=== PATIENT | male | born 1955 | race Caucasian/White ===

== ENCOUNTER 2016-10-12 17:35 | Emergency (ER) | payer MEDICARE ==
[2016-10-12 17:36] VITALS: BP 102/71; PULSE 72; RESP 20; TEMP 97.9; O2SAT 98
--- NOTE | 2016-10-12 18:05 | PD ---
Physical Exam Date Seen by Provider: Oct 12, 2016 Time Seen by Provider: 18:03 Narrative 61 yo male that presents to the ED for evaluation of fall this morning. Fell down about 15 stairs. Pain to back and right leg. No head injury. No LOC. Ambulating with cane (not his). No neck pain. No arm pain. Pain is 8/10. Vitals are stable. Awaiting bed placement. Data Data Last Documented VS Vital Signs Date Time Temp Pulse Resp B/P Pulse Ox O2 Delivery O2 Flow Rate FiO2 10/12/16 17:36 97.9 72 20 102/71 98 Room Air [facility] Medical Record Reviewed: Yes Supervised Visit with SURESH: No Kyle Clark Oct 12, 2016 18:05
[2016-10-12] MEDS ORDERED: ORPHENADRINE INJ 60 MG/2 ML AMP IM ONE (19:15)
[2016-10-12] MEDS ORDERED: KETOROLAC TROMETHAMINE 60 MG/2 ML (IM) VIAL IM ONE (19:15)
--- NOTE | 2016-10-12 19:27 | PD ---
HPI Chief Complaint: Back/ Neck Pain or Injury Time Seen by Provider: 19:24 Travel History International Travel<30 days: No Contact w/Intl Traveler<30days: No Traveled to known affect area: No History of Present Illness HPI 61-year-old white male with a history of MS presents emergency department for evaluation of back pain after a slip and fall down a set of stairs. He states that he fell down approximately 12-15 stairs. He did not strike his head. He denies syncope. No neck or upper back pain. He states that he has a mild gait disturbance and trips from his MS but does not typically use a cane or walker. Patient states that he is having pain in his right lower lumbar spine with radiation in the right leg. He's having used a friend's cane since the injury. States the pain is mild at rest but is moderate with movement. He denies any acute bowel or bladder changes. No focal numbness, tingling or weakness after the accident. PFSH Past Medical History Narrative Medical MS Tetanus Vaccination: < 5 Years Past Surgical History Narrative Surgical rIGHT ROTATOR CUFF REPAIR, left trigger finger release Social History Alcohol Use: No Tobacco Use: No Substance Use: No Allergies-Medications (Allergen,Severity, Reaction): Coded Allergies: No Known Allergies (Unverified , 10/12/16) Reported Meds & Prescriptions Reported Meds & Active Scripts Active Flexeril (Cyclobenzaprine HCl) 10 Mg Tab 10 Mg PO TID Diclofenac Sodium DR (Diclofenac Sodium) 75 Mg Tabdr 75 Mg PO BID Review of Systems Except as stated in HPI: all other systems reviewed are Neg Physical Exam Narrative GENERAL: Well-developed, well-nourished in no apparent distress. Nontoxic appearing. HEAD: Normocephalic, atraumatic. EYES: Pupils equal round and reactive. Extraocular motions intact. No scleral icterus. No injection or drainage. ENT: Nose clear. Throat without erythema, tonsillar hypertrophy or exudate. Uvula midline. Airway patent. NECK: Trachea midline. Supple, nontender, moves head freely. No central bony tenderness or spasm. CARDIOVASCULAR: Regular rate and rhythm without murmurs, gallops, or rubs. RESPIRATORY: Clear to auscultation. Breath sounds equal bilaterally. No wheezes , rales, or rhonchi. GASTROINTESTINAL: Abdomen soft, non-tender, nondistended. No hepato-splenomegaly , or palpable masses. No guarding. EXTREMITIES: No clubbing, cyanosis, or edema. No joint tenderness. BACK: No central bony tenderness to palpation of dorsal lumbar spine. Patient complains of right paralumbar tenderness into the right buttocks. Positive straight leg raise on the right at 90. No saddle anesthesia. He has intact sensation with good distal pulses. Without deformity. No flank tenderness. NEUROLOGICAL: Awake, alert and oriented x 3 .Cranial nerves grossly intact. Motor and sensory grossly within normal limits. Normal speech. Data Data Last Documented VS Vital Signs Date Time Temp Pulse Resp B/P Pulse Ox O2 Delivery O2 Flow Rate FiO2 10/12/16 17:36 97.9 72 20 102/71 98 Room Air Orders Spine, Lumbar - Ltd (Ap & Lat) (10/12/16 19:14) Ketorolac Inj (Toradol Inj) (10/12/16 19:15) Orphenadrine Inj (Norflex Inj) (10/12/16 19:15) [facility] Medical Decision Making Medical Screen Exam Complete: Yes Emergency Medical Condition: Yes Medical Record Reviewed: Yes Interpretation(s) Last 24 hours Impressions Lumbar Spine X-Ray 10/12/16 191 Signed Impressions: Service Date/Time: Monday, October 12, 2016 20:05 - CONCLUSION: Negative for fracture or dislocation. Follow up in 7-10 days is suggested if symptoms persist. Stephen Brennan MD FACR Differential Diagnosis MDM: High Differential diagnoses: Fracture, sprain, strain, dislocation, contusion, neurovascular injury Narrative Course X-ray of the lumbar spine is negative for trauma. Patient's given Toradol 60 and Norflex 60 mg IM. This is back pain with sciatica, fall Diagnosis Primary Impression: Back pain with sciatica Additional Impression: Fall Qualified Code: W19.XXXA - Fall, initial encounter Patient Instructions: General Instructions Additional Instructions: Rest. Ice for the next 3 days followed by heat . Flexeril and Voltaren. Follow-up with a primary care doctor in one week. Return to the ER for emergencies. Med/Other Pt SpecificInfo: Prescription(s) given Scripts Cyclobenzaprine (Flexeril)10 Mg Tab10 Mg PO TID #30 TAB Prov:Josh Kaufman MD 10/12/[address] 75 Mg Tabdr75 Mg PO BID #20 TAB Prov:Josh Kaufman MD 10/12/16 Disposition: 01 DISCHARGE HOME Condition: Stable Garry Wen Oct 12, 2016 19:27
--- NOTE | 2016-10-12 20:10 | RADRPT ---
EXAM DATE/TIME: 10/12/2016 20:05 [facility] COMPARISON: No previous studies available for comparison. INDICATIONS : Lower back pain post fall. MEDICAL HISTORY : None. SURGICAL HISTORY : None. ENCOUNTER: Initial ACUITY: 1 day PAIN SCORE: 7/10 LOCATION: lumbar spine. FINDINGS: Two view examination was performed. There are five non-rib bearing vertebral bodies. The vertebral bodies are in normal alignment without evidence of subluxation or scoliosis. The disc spaces are willian ntained. The pedicles are intact. Bony mineralization is normal. No fracture is identified. CONCLUSION: Negative for fracture or dislocation. Follow up in 7-10 days is suggested if symptoms persist. Stephen Brennan MD FACR on October 12, 2016 at 20:07 Board Certified Radiologist. This report was verified electronically.
[2016-10-12] MEDS ORDERED: CYCL1TAB29 PO (20:28)
[2016-10-12] MEDS ORDERED: DICL75TA PO (20:28)
== END 2016-10-12 20:45 | disposition home or self-care (01) ==
LOC: NEPK 17:35
DX: M54.30 Sciatica, unspecified side (principal); G35 Multiple sclerosis; Z79.899 Other long term (current) drug therapy
CPT/HCPCS: 72100; 96372; 99284; J1885; J2360